=== PATIENT | female | born 1980 | race American Indian/Alaskan Native ===

== ENCOUNTER 2020-03-08 11:26 | Emergency (ER) | payer SELFPAY ==
[2020-03-08] MEDS ORDERED: SODIUM CHLORIDE 0.9% 1000 ML 1,000 ML IV ONE ×3 (12:18→18:42)
--- NOTE | 2020-03-08 12:24 | Emergency Department Report ---
ED General Adult HPI - General Chief complaint: Medical Clearance Stated complaint: BRAYCARDIA/LOW BP Time Seen by Provider: 03/08/20 12:13 Source: patient Mode of arrival: Stretcher Limitations: No Limitations - History of Present Illness Initial comments: Patient is 39 years old female with history of depression and substance abuse. Patient brought to the emergency room via EMS from [facility]. Patient was admitted voluntarily for psychiatric management of suicidal at ideation and relapsed on methamphetamine. Patient brought to the emergency room for evaluation of low blood pressure and low heart rate. Patient stated that fo r the whole night yesterday her systolic blood pressures in the 70 and heart rate is in the 40s. Patient denied any vomiting but stated that she is slightly nauseated. Patient denied any chest pain, shortness of breath, abdominal pain or diarrhea. No fever or chills. -: Last night - Related Data Allergies Allergy/AdvReac Type Severity Reaction Status Date / Time Penicillins Allergy Unknown Verified 03/08/20 13:57 Sulfa (Sulfonamide Allergy Anaphylaxis Verified 03/08/20 13:57 Antibiotics) ED Review of Systems ROS: Stated complaint: BRAYCARDIA/LOW BP Other details as noted in HPI Comment: All other systems reviewed and negative Constitutional: denies: chills, fever Respiratory: denies: cough, shortness of breath, SOB with exertion, SOB at rest Cardiovascular: denies: chest pain, palpitations Gastrointestinal: nausea. denies: abdominal pain, vomiting, diarrhea, constipation, hematemesis, melena, hematochezia Genitourinary: denies: urgency, dysuria, frequency, hematuria, discharge Musculoskeletal: denies: back pain Neurological: denies: headache, weakness, numbness, paresthesias, confusion, abnormal gait Psychiatric: anxiety, depression. denies: visual hallucinations, homicidal thoughts, suicidal thoughts ED Past Medical Hx - Past Medical History Previous Medical History?: No - Surgical History Past Surgical History?: Yes Additional Surgical History: Partial hysterectomy - Social History Smoking Status: Current Every Day Smoker Substance Use Type: Methamphetamines ED Physical Exam - General Limitations: No Limitations General appearance: alert, in no apparent distress - Head Head exam: Present: atraumatic, normocephalic, normal inspection - Eye Eye exam: Present: normal appearance, PERRL - ENT ENT exam: Present: normal exam, normal orophraynx, mucous membranes moist - Neck Neck exam: Present: normal inspection, full ROM. Absent: tenderness, meningismus, lymphadenopathy, thyromegaly - Respiratory Respiratory exam: Present: normal lung sounds bilaterally - Cardiovascular Cardiovascular Exam: Present: regular rate, normal rhythm, normal heart sounds - GI/Abdominal GI/Abdominal exam: Present: soft, normal bowel sounds. Absent: distended, tenderness, guarding, rebound, rigid, organomegaly, mass, bruit, pulsatile mass, hernia - Extremities Exam Extremities exam: Present: normal inspection, full ROM, normal capillary refill. Absent: pedal edema, calf tenderness - Back Exam Back exam: Present: normal inspection, full ROM. Absent: CVA tenderness (R), CVA tenderness (L) - Neurological Exam Neurological exam: Present: alert, oriented X3, CN II-XII intact, normal gait, reflexes normal. Absent: motor sensory deficit - Psychiatric Psychiatric exam: Present: depressed - Skin Skin exam: Present: warm, intact, normal color ED Course Vital Signs 03/08/20 03/08/20 03/08/20 11:30 13:19 13:31 Temperature 98.0 F Pulse Rate 75 80 77 Respiratory 16 14 Rate Blood Pressure 95/48 102/52 Blood Pressure [Left] O2 Sat by Pulse 100 100 Oximetry 03/08/20 03/08/20 03/08/20 13:45 13:55 14:01 Temperature Pulse Rate 73 77 Respiratory 18 18 12 Rate Blood Pressure 102/52 98/50 Blood Pressure [Left] O2 Sat by Pulse 100 100 Oximetry 03/08/20 03/08/20 03/08/20 14:15 14:31 14:53 Temperature Pulse Rate 77 75 Respiratory 21 10 L Rate Blood Pressure 98/50 104/50 104/50 Blood Pressure [Left] O2 Sat by Pulse 100 100 100 Oximetry 03/08/20 03/08/20 03/08/20 15:17 15:31 15:45 Temperature Pulse Rate Respiratory Rate Blood Pressure 104/50 100/41 100/41 Blood Pressure [Left] O2 Sat by Pulse 100 100 Oximetry 03/08/20 03/08/20 03/08/20 16:21 16:31 16:45 Temperature Pulse Rate Respiratory Rate Blood Pressure 111/46 111/46 111/46 Blood Pressure [Left] O2 Sat by Pulse 98 100 94 Oximetry 03/08/20 03/08/20 03/08/20 17:01 17:15 17:31 Temperature Pulse Rate Respiratory Rate Blood Pressure 111/46 111/46 95/37 Blood Pressure [Left] O2 Sat by Pulse 100 100 100 Oximetry 03/08/20 03/08/20 03/08/20 17:45 18:01 18:45 Temperature Pulse Rate 74 Respiratory 11 L Rate Blood Pressure 95/37 91/40 95/48 Blood Pressure [Left] O2 Sat by Pulse 100 100 100 Oximetry 03/08/20 19:13 Temperature Pulse Rate 76 Respiratory 18 Rate Blood Pressure Blood Pressure 115/56 [Left] O2 Sat by Pulse 98 Oximetry ED Medical Decision Making - Lab Data Result diagrams: 03/08/20 12:41 03/08/20 12:41 - EKG Data -: EKG Interpreted by Me EKG shows normal: sinus rhythm Rate: normal - EKG Data Interpretation: no acute changes - Medical Decision Making Patient is 39 years old female with history of depression and substance abuse. Patient brought to the emergency room via EMS from [facility]. Patient was admitted voluntarily for psychiatric management of suicidal at ideation and relapsed on methamphetamine. Patient brought to the emergency room for evaluation of low blood pressure and low heart rate. Patient stated that for the whole night yesterday her systolic blood pressures in the 70 and heart rate is in the 40s. Patient denied any vomiting but stated that she is slightly nauseated. Patient denied any chest pain, shortness of breath, abdominal pain or diarrhea. No fever or chills. Labs reviewed and is unremarkable. Patient received 3 L of normal saline with significant improvement in her blood pressure. Patient is clinically stable to go back to her psychiatric treatment at [facility]. Patient given prescription for Zofran and advised to follow-up with her primary care physician in the next 2 to 3 days and to return to the ER if she develop any new symptoms or if her s ymptoms get worse. Critical Care Time: Yes Critical care time in (mins) excluding proc time.: 30 Critical care attestation.: If time is entered above; I have spent that time in minutes in the direct care of this critically ill patient, excluding procedure time. ED Disposition Clinical Impression: Hypotension, Nausea Disposition: DC-01 TO HOME OR SELFCARE Is pt being admited?: No Condition: Stable Instructions: Hypotension (ED) Referrals: PRIMARY CARE, [Primary Care Provider] - 3-5 Days
[2020-03-08 13:11] LABS: Basophils # (Auto) 0.1 K/mm3 (0.0-0.1); Basophils % (Auto) 0.6 % (0.0-1.8); Eosinophils # (Auto) 0.2 K/mm3 (0.0-0.4); Eosinophils % (Auto) 2.3 % (0.0-4.3); Hemoglobin 13.4 gm/dl (10.1-14.3); Lymphocytes # (Auto) 2.4 K/mm3 (1.2-5.4); Lymphocytes % (Auto) 22.7 % (13.4-35.0); Mean Corpuscular HGB Conc 34 % (30-34); Mean Corpuscular Volume 98 fl (79-97); Monocytes # (Auto) 0.6 K/mm3 (0.0-0.8); Monocytes % (Auto) 5.3 % (0.0-7.3); Platelet Count 284 K/mm3 (140-440); Red Cell Distribution Width 13.4 % (13.2-15.2)
[2020-03-08 13:24] LABS: Bilirubin,Urine NEG (Negative); Blood,Urine NEG (Negative); Color,Urine Straw (Yellow); Mucus,Urine FEW /HPF; Protein,Urine <15 mg/dL mg/dL (Negative); Urobilinogen,Urine < 2.0 mg/dL (<2.0)
[2020-03-08 13:30] LABS: BUN/Creatinine Ratio 15; Blood Urea Nitrogen 6 mg/dL (7-17); Calcium 8.2 mg/dL (8.4-10.2); Hemolysis Index 15
[2020-03-08 13:32] LABS: Amphetamine Screen,Urine PRESUMPTIVE NEGATIVE; Benzodiazepines Screen,Urine PRESUMPTIVE NEGATIVE; Cannabinoid Screen,Urine PRESUMPTIVE NEGATIVE; Cocaine Screen,Urine PRESUMPTIVE NEGATIVE; Methadone Screen,Urine PRESUMPTIVE NEGATIVE; Opiate Screen,Urine PRESUMPTIVE NEGATIVE
[2020-03-08 13:33] LABS: Alanine Aminotransferase 9 units/L (7-56); Albumin 3.8 g/dL (3.9-5)
[2020-03-08 13:37] LABS: Bilirubin,Direct < 0.2 mg/dL (0-0.2)
[2020-03-08 14:21] LABS: Free T4 (Free Thyroxine) 0.73 ng/dL (0.76-1.46)
[2020-03-08] MEDS ORDERED: SODIUM CHLORIDE 0.9% 1000 ML 1,000 ML ONE (17:13)
[2020-03-08 20:58] VITALS: BP 160/64
== END 2020-03-08 21:27 | disposition home or self-care (01) ==
LOC: ED 11:26
DX: I95.89 Other hypotension (principal); R11.0 Nausea; F17.200 Nicotine dependence, unspecified, uncomplicated; F15.10 Other stimulant abuse, uncomplicated; Z90.710 Acquired absence of both cervix and uterus; Z88.0 Allergy status to penicillin; Z88.2 Allergy status to sulfonamides
CPT/HCPCS: 36415; 80048; 80076; 80307; 81001; 84439; 84443; 84484; 84703; 85025; 93005; 99285; J7030